=== PATIENT | male | born 2000 | race Caucasian/White ===

== ENCOUNTER 2021-11-25 20:47 | Emergency (ER) | payer BC, SELFPAY ==
[2021-11-25 20:49] VITALS: BP 137/78; PULSE 87; RESP 14; TEMP 36.4; O2SAT 99
[2021-11-25] MEDS: FAMOTIDINE 20 MG TABLET PO (21:22)
[2021-11-25] MEDS: predniSONE 20 MG TABLET 60 MG PO (21:22)
--- NOTE | 2021-11-25 21:38 | ED.ALLEREA ---
HPI - Allergic Reaction General Chief complaint: Allergic Reaction Stated complaint: Allergic reaction Time Seen by Provider: 11/25/21 20:56 History of Present Illness HPI narrative: Patient is a 21-year-old male who presents ER with concerns for allergic reaction. Patient reports he has history of egg/tree nut/peanut allergies. He ate some food this evening that contained pecans that he was unaware of. He then took some Benadryl. About 45 minutes after taking Benadryl he started having some discomfort on the right side of his throat. Worse with swallowing. No difficulty tolerating his oral secretions. No difficulty breathing. 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 He has never had any reactions to peanuts and tree nuts because he does not eat them as he was tested for foodborne allergies when he was very young due to family history of food allergies. He does not carry an EpiPen though he is supposed to. No new rash. No swelling of the tongue or itchiness in the back of his throat. Related Data Allergies Allergy/AdvReac Type Severity Reaction Status Date / Time Penicillins Allergy Unknown Verified 11/25/21 20:55 Review of Systems Constitutional: Constitutional: Denies chills, Denies fever(s) and Denies weakness ENT: Denies nasal congestion and Reports sore throat Respiratory: Respiratory: Denies cough, Denies dyspnea and Denies wheezing Gastrointestinal: Gastrointestinal: Denies abdominal pain, Denies nausea and Denies vomiting Allergic/Immunologic: Allergic/Immunologic: Denies lip swelling, Reports throat swelling (right side?) and Denies tongue swelling PMFSH Past Medical History Medical History (Updated 11/25/21 @ 21:52 by Mati Howe MD) History of ventricular tachycardia Surgical History Surgical History (Updated 11/25/21 @ 21:41 by Mati Howe MD) History of cardiac monitoring implanted device Social History Social History (Updated 11/25/21 @ 21:43 by Mati Howe MD) Smoking status: Never smoker Exam Narrative: GENERAL: Well-appearing, well-nourished, and in no acute distress. HEAD: Normocephalic, atraumatic. ENT: Mucous membranes moist. Normal-appearing posterior oropharynx without uvular edema, uvula is midline. No tonsillar hypertrophy or exudate or erythema. Tolerating oral secretions. No swelling of the tongue or lip. NECK: Supple. CHEST: Clear to auscultation. No respiratory distress. HEART: Regular rate and rhythm. Normal peripheral pulses. ABDOMEN: Soft, nontender, nondistended. EXTREMITIES: Normal range of motion. No edema. SKIN: Warm, dry, no rash. NEURO: Alert and oriented x3. Course Course Emergency Course: Steroids and Pepcid given here. Recommended continued Benadryl at home. Will give patient prescription for epinephrine. No evidence of anaphylaxis. Vital Signs Vital signs: Vital Signs Temperature 97.5 F L 11/25/21 20:49 Pulse Rate 87 11/25/21 20:49 Respiratory Rate 14 11/25/21 20:49 Blood Pressure 137/78 11/25/21 20:49 Pulse Oximetry 99 11/25/21 20:49 Temperature 97.5 F L 11/25/21 20:49 Pulse Rate 87 11/25/21 20:49 Respiratory Rate 14 11/25/21 20:49 Blood Pressure 137/78 11/25/21 20:49 Pulse Oximetry 99 11/25/21 20:49 Discharge Plan Discharge Clinical Impression: Allergic reaction Patient Disposition: Home, Self-Care Condition: Stable Instructions: Food Allergy (ED) Additional Instructions: Return the ER if cannot breathe, you cannot swallow, you have swelling of your lips or tongue, you develop any new rash, you have additional concerns. Prescriptions: New epinephrine [EpiPen] 0.3 mg/0.3 mL auto-injector 0.3 mg IM ONCE Qty: 1 RF: 0 Follow-up/Referrals: PHYSICIAN NOT ON STAFF,NONSTAFF [Primary Care Provider] - 1 Week
[2021-11-25 22:00] VITALS: PULSE 72; RESP 18; O2SAT 100
== END 2021-11-25 22:01 | disposition home or self-care (01) ==
PROVIDERS: Emergency Provider Emergency Medicine
DX: R09.89 Other specified symptoms and signs involving the circulatory and respiratory systems (principal); T78.1XXA Other adverse food reactions, not elsewhere classified, initial encounter; Z91.012 Allergy to eggs; Z91.010 Allergy to peanuts; Z91.018 Allergy to other foods
CPT/HCPCS: 99283; A9270; J7512

== ENCOUNTER 2022-06-23 21:47 | Emergency (ER) | payer BC, SELFPAY ==
[2022-06-23] VITALS (13 sets, daily range): BP systolic 112–151; BP diastolic 65–94; PULSE 61–94; RESP 13–21; TEMP 36.6; O2SAT 97–100
--- NOTE | 2022-06-23 22:25 | ED.ALLEREA ---
HPI - Allergic Reaction General Chief complaint: Allergic Reaction Stated complaint: Allergic rx to peanuts, has epi pen with him Time Seen by Provider: 06/23/22 22:22 Source: RN notes reviewed History of Present Illness HPI narrative: Patient presents emergency department from home for allergic reaction. Patient states that this evening he was eating ice cream that have been recently cross-contamination with a string that had peanuts in it the patient is allergic to peanuts states he began to have some swelling and itching in the back of his throat which he continues to have he denies having any shortness of breath he denies any generalized rash he denies any chest pain abdominal pain nausea vomiting states he does have an EpiPen but did not use it Related Data Allergies Allergy/AdvReac Type Severity Reaction Status Date / Time peanut Allergy Anaphylaxis Verified 06/23/22 21:55 Penicillins Allergy Unknown Verified 06/23/22 21:54 tree nut Allergy Anaphylaxis Verified 06/23/22 21:55 Review of Systems Review of Systems: Gen.: Denies fevers or chills Eyes: Denies eye pain or visual change ENT: Reports feeling of itching and sore throat Respiratory: Denies shortness of breath or cough CV: Denies chest pain or palpitations GI: Denies abdominal pain nausea, emesis Musculoskeletal: Denies back pain or muscle pain Neuro: Denies numbness, tingling, weakness or focal weakness Skin: Denies rash Except as documented, all other systems reviewed and negative [facility] Past Medical History Medical History History of ventricular tachycardia Surgical History Surgical History (Updated 11/25/21 @ 21:41 by Mati Howe MD) History of cardiac monitoring implanted device Social History Social History Smoking status: Never smoker Exam Narrative: APPEARANCE: No acute distress, nontoxic, resting in bed EYES: EOMI HEENT: Normocephalic, atraumatic, OMM, nares patent oral mucosa moist erythema exudate posterior pharynx tolerating own secretions voice normal RESPIRATORY: No respiratory distress Clear to auscultation bilaterally with no rhonchi wheezing or rales. CARDIOVASCULAR: Regular rate and rhythm without murmurs rubs or gallops. ABDOMINAL: Soft, nontender, nondistended, no rebound or guarding MUSCULOSKELETAl: Moves all extremities. No clubbing, cyanosis or edema. NEURO: Awake and alert. Following commands, speech normal, no focal deficits SKIN:: Warm, dry. No rashes lesions or abrasions PSYCHIATRIC: Normal affect/mood, Course Course Emergency Course: Patient remained observed in the emergency department for 4 hours no further reactions noted patient states his throat feels improved at this time Discussed with patient results of workup and diagnosis. Discussed need for follow-up with primary care, proper use of medication, and reasons to return to the emergency department. Patient understands and agrees to current treatment plan patient does have an EpiPen at home Vital Signs Vital signs: Vital Signs Temperature 97.8 F 06/23/22 21:51 Pulse Rate 94 06/23/22 21:51 Respiratory Rate 18 06/23/22 21:51 Blood Pressure 151/72 H 06/23/22 21:51 Pulse Oximetry 100 06/23/22 21:51 Oxygen Delivery Room Air 06/23/22 21:51 Temperature 97.8 F 06/23/22 21:51 Pulse Rate 66 06/24/22 01:30 Respiratory Rate 18 06/24/22 01:30 Blood Pressure 115/64 06/24/22 01:21 Pulse Oximetry 96 06/24/22 01:30 Oxygen Delivery Room Air 06/23/22 21:51 Discharge Plan Discharge Clinical Impression: Allergic reaction to food Patient Disposition: Home, Self-Care Condition: Stable Instructions: Antibiotic Form, Food Allergy (ED) Additional Instructions: Return for swelling of the lips or tongue shortness of breath or any other symptoms of concern Prescriptions: New prednisone 20 mg tablet
[2022-06-23] MEDS: diphenhydrAMINE HCl INJ 50 MG/ML VIAL 25 MG IV PUSH (22:31)
[2022-06-23] MEDS: FAMOTIDINE 20 MG/2 ML VIAL IV PUSH (22:31)
[2022-06-23] MEDS: methylPREDNISolone SOD SUCC 125 MG VIAL IV PUSH (22:31)
[2022-06-24] VITALS (17 sets, daily range): BP systolic 111–121; BP diastolic 61–72; PULSE 62–80; RESP 14–24; O2SAT 96–100
== END 2022-06-24 02:37 | disposition home or self-care (01) ==
PROVIDERS: Emergency Provider Emergency Medicine
DX: T78.1XXA Other adverse food reactions, not elsewhere classified, initial encounter (principal); R09.89 Other specified symptoms and signs involving the circulatory and respiratory systems; Z91.010 Allergy to peanuts
CPT/HCPCS: 96374; 96375; 99284; J1200; J2930